=== PATIENT | female | born 1955 | race Caucasian/White ===

== ENCOUNTER → 2023-09-24 11:07 | Outpatient (REF) | payer MEDICARE, SELFPAY ==
[2023-09-24 11:44] LABS: % Basophils 1.1 % (0-2); % Eosinophils 2.5 % (0-6); % Immature Granulocytes 0.3 % (0-0.5); % Lymphocytes 6.5 % (20.5-51.1); % Monocytes 7.4 % (1.7-9.3); % Neutrophils 82.2 % (42.2-75.2); Absolute Basophils 0.1 10^3/uL (0-0.2); Absolute Eosinophils 0.2 10^3/uL (0-0.7); Absolute Lymphocytes 0.4 10^3/uL (1.2-3.4); Absolute Monocytes 0.5 10^3/uL (0.1-0.6); Absolute Neutrophils 5.3 10^3/uL (1.4-6.5); Hematocrit 43.5 % (37.0-47.0); Hemoglobin 14.4 g/dL (12.0-16.0); Mean Corp Hgb Conc. 33.1 g/dL (33.0-37.0); Mean Corpuscular Hgb 32.7 pg (27.0-31.0); Mean Corpuscular Volume 98.9 fL (81.0-99.0); Mean Platelet Volume 8.8 fL (7.4-10.4); Nucleated Red Blood Cells % 0 %; Platelet Count 240 10^3/uL (130-400); Red Cell Dist. Width 13.5 % (11.5-14.5); White Blood Cell Count 6.5 10^3/uL (4.8-10.8)
[2023-09-24 12:15] LABS: ALT (SGPT) 15 U/L (0-35); AST (SGOT) 20 U/L (14-36); Alkaline Phosphatase 101 U/L (38-126); Blood Urea Nitrogen 16 mg/dl (7-17); Calcium 11.4 mg/dl (8.4-10.2); Carbon Dioxide 27 mmol/L (22-30); Chloride 101 mmol/L (98-107); Direct Bilirubin 0.5 mg/dl (0.0-0.4); Glucose 120 mg/dl (70-99); HDL Cholesterol 59 mg/dl; Iron 68 ug/dl (37-170); LDL Cholesterol, Calculated 89 mg/dl; Magnesium 1.5 mg/dl (1.6-2.3); Potassium 4.1 mmol/L (3.5-5.1); Sodium 136 mmol/L (135-145); Total Bilirubin 0.6 mg/dl (0.2-1.3); Total Cholesterol 180 mg/dl (50-199); Total Protein 6.2 g/dl (6.3-8.2); Triglyceride 161 mg/dl (10-149); Very Low Density Lipoprotein 32 mg/dl (0-30); eGFR > 60.00
[2023-09-24 12:37] LABS: Vitamin D, 25-OH*** 38.4 ng/mL (30-80)
[2023-09-24 13:27] LABS: Folate > 20.0 ng/ml (2.76-20); Vitamin B12 588 pg/ml (239-931)
[2023-09-26 10:15] LABS: Intact PTH 149.2 pg/ml (13.6-85.8)
[2023-09-26 20:53] LABS: Zinc 59.8 ug/dL (60.0-120.0)
[2023-09-28 05:34] LABS: Vitamin B1, Whole Blood 391 nmol/L (70-180)
== END ==
LOC: REG 11:07
PROVIDERS: ATTENDING PHYSICIAN Nurse Practitioner
DX: D68.9 Coagulation defect, unspecified (principal); I20.0 Unstable angina; N18.6 End stage renal disease; N25.81 Secondary hyperparathyroidism of renal origin; E66.01 Morbid (severe) obesity due to excess calories; K59.00 Constipation, unspecified; D50.8 Other iron deficiency anemias
CPT/HCPCS: 36415; 80053; 80061; 82248; 82306; 82607; 82728; 82746; 83540; 83735; 83970; 84425; 84630; 85025

== ENCOUNTER → 2023-12-25 07:49 | Outpatient (REF) | payer MEDICARE, SELFPAY ==
[2023-12-25 08:18] LABS: Hematocrit 46.4 % (37.0-47.0); Hemoglobin 15.5 g/dL (12.0-16.0); Mean Corp Hgb Conc. 33.4 g/dL (33.0-37.0); Mean Corpuscular Hgb 32.2 pg (27.0-31.0); Mean Corpuscular Volume 96.3 fL (81.0-99.0); Mean Platelet Volume 8.2 fL (7.4-10.4); Platelet Count 225 10^3/uL (130-400); Red Blood Cell Count 4.82 10^6/uL (4.20-5.40); Red Cell Dist. Width 13.1 % (11.5-14.5); White Blood Cell Count 1.7 10^3/uL (4.8-10.8)
[2023-12-25 08:53] LABS: ALT (SGPT) 17 U/L (0-35); AST (SGOT) 18 U/L (14-36); Albumin 3.8 g/dl (3.5-5.0); Alkaline Phosphatase 86 U/L (38-126); Blood Urea Nitrogen 13 mg/dl (7-17); Calcium 10.6 mg/dl (8.4-10.2); Carbon Dioxide 30 mmol/L (22-30); Chloride 103 mmol/L (98-107); Glucose 123 mg/dl (70-99); HDL Cholesterol 54 mg/dl; LDL Cholesterol, Calculated 115 mg/dl; Potassium 4.4 mmol/L (3.5-5.1); Sodium 139 mmol/L (135-145); Total Bilirubin 0.7 mg/dl (0.2-1.3); Total Cholesterol 192 mg/dl (50-199); Total Protein 6.1 g/dl (6.3-8.2); Triglyceride 119 mg/dl (10-149); Very Low Density Lipoprotein 23 mg/dl (0-30); eGFR > 60.00
[2023-12-25 09:09] LABS: Vitamin D, 25-OH*** 30.2 ng/mL (30-80)
[2023-12-25 09:23] LABS: TSH Reflex To Free T4 1.21 uIU/ml (0.47-4.68)
[2023-12-25 09:54] LABS: Absolute Neutrophils -Man Diff 0.7 10^3/uL (1.4-6.5); Atypical Lymphocytes 20 %; Eosinophils 13 % (0-6); Lymphocytes 18 % (20-51); Monocytes 17 % (2-9); Segmented Neutrophils 29 % (42-75)
[2023-12-25 09:55] LABS: Normal RBC Morphology Yes; Platelets Checked Yes; Total Cells Counted 100
[2023-12-25 16:06] LABS: Vitamin B12 > 1000 pg/ml (239-931)
[2023-12-26 11:05] LABS: Intact PTH 174.4 pg/ml (13.6-85.8)
== END ==
LOC: REG 07:49
PROVIDERS: ATTENDING PHYSICIAN Nurse Practitioner Adult Health
DX: N18.6 End stage renal disease (principal); Z99.2 Dependence on renal dialysis; Z00.00 Encounter for general adult medical examination without abnormal findings; I10 Essential (primary) hypertension; I13.11 Hypertensive heart and chronic kidney disease without heart failure, with stage 5 chronic kidney disease, or end stage renal disease; Z79.899 Other long term (current) drug therapy; M85.89 Other specified disorders of bone density and structure, multiple sites; Z13.220 Encounter for screening for lipoid disorders; E21.3 Hyperparathyroidism, unspecified
CPT/HCPCS: 36415; 80053; 80061; 82306; 82607; 83970; 84443; 85025

== ENCOUNTER → 2024-01-22 12:23 | Outpatient (REF) | payer MEDICARE, SELFPAY ==
[2024-01-22 14:11] LABS: Calcium 10.3 mg/dl (8.4-10.2); Iron 96 ug/dl (37-170); Magnesium 1.4 mg/dl (1.6-2.3)
[2024-01-22 14:27] LABS: Vitamin D, 25-OH*** 31.1 ng/mL (30-80)
[2024-01-22 15:17] LABS: Folate > 20.0 ng/ml (2.76-20)
== END ==
LOC: REG 12:23
PROVIDERS: ATTENDING PHYSICIAN Nurse Practitioner; FAMILY PHYSICIAN Nurse Practitioner Adult Health
DX: N18.6 End stage renal disease (principal); D50.8 Other iron deficiency anemias; I12.0 Hypertensive chronic kidney disease with stage 5 chronic kidney disease or end stage renal disease
CPT/HCPCS: 36415; 82306; 82728; 82746; 83540; 83735; 83970; 84630

== ENCOUNTER → 2024-03-01 10:02 | Outpatient (REF) | payer MEDICARE, SELFPAY ==
[2024-03-01 11:06] LABS: Ionized Calcium 1.25 mMOL/L (1.15-1.33)
[2024-03-01 11:47] LABS: Intact PTH 172.8 pg/ml (13.6-85.8)
[2024-03-01 11:59] LABS: Calcium 10.4 mg/dl (8.4-10.2); Creatine Phosphokinase 34 U/L (30-135); Magnesium 1.7 mg/dl (1.6-2.3); Phosphorus 3.2 mg/dl (2.5-4.5)
[2024-03-01 12:42] LABS: TSH Reflex To Free T4 0.94 uIU/ml (0.47-4.68)
[2024-03-02 14:43] LABS: EBV-EA (D) Ab IgG 81.3 U/mL (0.0-10.9); EBV-NA IgG <3.0 U/mL (0.0-21.9); EBV-VCA IgM Antibodies <10.0 U/mL (0.0-43.9)
[2024-03-02 16:55] LABS: CMV Qnt NAAT Plasma Log IU/mL Not Detected log IU/mL; CMV Quant NAAT Plasma Interp Not Detected (Not Detected); CMV Quant by NAAT Plasma IU/mL Not Detected
[2024-03-02 22:52] LABS: BK Qnt NAAT IU/mL, Plasma Not Detected; BK Qnt NAAT IU/mL, Urine Not Detected; BK Qnt NAAT Interp, Plasma Not Detected (Not Detected); BK Qnt NAAT Interp, Urine Not Detected (Not Detected); BK Qnt NAAT log IU/mL, Plasma Not Detected log IU/mL; BK Qnt NAAT log IU/mL, Urine Not Detected log IU/mL
== END ==
LOC: REG 10:02
PROVIDERS: ATTENDING PHYSICIAN Specialist; FAMILY PHYSICIAN Nurse Practitioner Adult Health
DX: Z94.0 Kidney transplant status (principal); R53.83 Other fatigue
CPT/HCPCS: 36415; 82330; 82550; 83735; 83970; 84100; 84443; 86663; 86664; 86665; 87497; 87799

== ENCOUNTER 2024-05-05 15:52 | Emergency (ER) | payer MEDICARE, SELFPAY ==
[2024-05-05] VITALS (12 sets, daily range): BP systolic 79–154; BP diastolic 52–120; BMI 37.8
[2024-05-05 16:25] LABS: Hematocrit 39.3 % (37.0-47.0); Hemoglobin 13.5 g/dL (12.0-16.0); Mean Corp Hgb Conc. 34.4 g/dL (33.0-37.0); Mean Corpuscular Hgb 30.8 pg (27.0-31.0); Mean Corpuscular Volume 89.7 fL (81.0-99.0); Mean Platelet Volume 9.2 fL (7.4-10.4); Platelet Count 145 10^3/uL (130-400); Red Blood Cell Count 4.38 10^6/uL (4.20-5.40); White Blood Cell Count 6.9 10^3/uL (4.8-10.8)
[2024-05-05 16:32] LABS: ALT (SGPT) 21 U/L (0-35); AST (SGOT) 26 U/L (14-36); Albumin 3.2 g/dl (3.5-5.0); Alkaline Phosphatase 45 U/L (38-126); Blood Urea Nitrogen 16 mg/dl (7-17); Carbon Dioxide 24 mmol/L (22-30); Chloride 97 mmol/L (98-107); Estimated Creatinine Clearance 112 ml/min; Glucose 143 mg/dl (70-99); Potassium 4.1 mmol/L (3.5-5.1); Sodium 132 mmol/L (135-145); Total Bilirubin 1.1 mg/dl (0.2-1.3); Total Protein 5.5 g/dl (6.3-8.2); eGFR > 60.00
[2024-05-05 16:37] LABS: Troponin I < 0.012 ng/ml
[2024-05-05 16:50] LABS: % Basophils 0.6 % (0-2); % Eosinophils 2.2 % (0-6); % Immature Granulocytes 0.6 % (0-0.5); % Lymphocytes 33.8 % (20.5-51.1); % Monocytes 6.1 % (1.7-9.3); % Neutrophils 56.7 % (42.2-75.2); Absolute Eosinophils 0.2 10^3/uL (0-0.7); Absolute Lymphocytes 2.3 10^3/uL (1.2-3.4); Absolute Monocytes 0.4 10^3/uL (0.1-0.6); Absolute Neutrophils 3.9 10^3/uL (1.4-6.5); Nucleated Red Blood Cells % 0 %
--- NOTE | 2024-05-05 17:25 | ED.GENMED ---
History of Present Illness
General
Chief Complaint: Dizziness
Source: patient and records
Time Seen by Provider: 05/05/24 16:25
History of Present Illness
History of Present Illness:
68-year-old female status post right kidney transplant, iron deficiency anemia, previous alcohol abuse presenting to the emergency department for evaluation at the request of her primary care provider after patient has been feeling feverish (notes
she has not had a fever), chills, nausea, 1 episode of vomiting yesterday but none today and lightheaded/off-balance while ambulating over the last 5 or 6 days. Patient reports that on Thursday she started experiencing dysuria and urinary frequency
and contacted her primary care provider and spoke to the on-call physician who decided to initiate patient on ciprofloxacin for suspected urinary tract infection. Patient reports that she never had her urine tested prior to starting treat. She
notes that the urinary symptoms did seem to improve but still had the after mentioned symptoms. At primary care provider's office today patient was evaluated and recommended to come to the ER for further evaluation and potential treatment.
Presently patient states she 'just does not feel very well'. No other concerns at this time.
Past History
Past History
ED Past Medical History: HTN, Renal failure and Other (End-stage renal disease on Dialysis, Iron deficiency, hyperparathyroidism, ABEBE, depression)
ED Past Surgical History: Orthopedic and Tonsilectomy
Social History
Tobacco: Non-smoker
Alcohol: Former (Recovering alcoholic)
Drug: None
Personal: Single
Living: alone (sister lives next door)
Family History
Family History: Other (Mother with colon cancer and colostomy, father with kidney disease and coronary disease.)
Review of Systems
Review of Systems
All Other Systems: ROS reviewed and negative except as documented in HPI and ROS
Phy Exam
Physical Exam
Physical Exam:
GENERAL: Alert , in no apparent distress
HEAD: NCAT
EYE: clear conjunctiva
NECK: Supple
ENT: mmm.
CARDIAC: Regular rate and rhythm .
LUNGS: Clear breath sounds bilaterally, no acute respiratory distress, no wheezes/rales/rhonchi
ABDOMEN: Soft, without focal tenderness, no r/g, mild right sided flank pain but patient reports this is chronic since transplant and not any different today
NEUROLOGICAL: Alert and oriented
SKIN: Warm and dry, skin intact.
MUSCULOSKELETAL: no edema, well perfused.
PSYCH: Normal and appropriate interaction.
Scores
Heart Failure Risk
Heart Failure Risk Score: Not Applicable
Heart Score for Chest Pain Patients
STEMI patient?: Not applicable
Withdrawal Assessment of Alcohol
Withdrawal Assessment Completed?: Not applicable
Course
Orders/Labs/Results
Orders:
Orders
05/05/24 15:56
Electrocardiogram (*1) Urgent
Reason for Study: Chest Pain
EKG- Treatment ONCE
05/05/24 16:04
Complete Blood Count/With Diff Urgent
Comprehensive Metabolic Panel Urgent
Troponin I Urgent
05/05/24 17:24
Lactic Acid Q4H
Comment: CANCEL 2nd LACTIC ACID IF 1st LACTIC ACID IS LESS THAN 2
Urinalysis Reflex To Culture Urgent
Date Specimen was Collected: 05/05/24
Time Specimen was Collected: 17:12
Urine Microscopic Reflex Cult Urgent
Blood Culture Routine
ALICIA Source: Blood/Venous
Specimen Description:
Blood Culture Urgent
ALICIA Source: Blood/Venous
Specimen Description:
Urine Culture Urgent
ALICIA Source: U
Specimen Description:
Date Specimen was Collected: 05/05/24
Time Specimen was Collected: 17:12
05/05/24 19:25
0.9% Sodium Chloride 1000 ml [Nss] 1,000 ml IV BOLUS
05/05/24 19:43
Cefepime HCl [Maxipime] 2,000 mg IV NOW STA
Abnormal Lab Results
05/05/24 05/05/24
16:04 17:24
Immature Gran % 0.6 H %
(0-0.5)
Sodium 132 L mmol/L
(135-145)
Chloride 97 L mmol/L
(98-107)
Glucose 143 H mg/dl
(70-99)
Total Protein 5.5 L g/dl
(6.3-8.2)
Albumin 3.2 L g/dl
(3.5-5.0)
Urine Ketones Trace A
(Negative)
Ur Occult Blood Reflex 1+ A
(Negative)
Urine Bilirubin 1+ A
(Negative)
Urine Urobilinogen 2+ A
(Neg - 1+)
Leukocyte Esterase Rfl Trace A
(Negative)
Urine Bacteria (Reflex) Many A
(Negative)
Urine Glucose Trace A
(Negative)
05/05/24 16:04
05/05/24 16:04
Vital Signs
Initial and Last Documented VS:
Initial Vital Signs
Temp Pulse Resp BP Pulse Ox
97.8 F 94 16 100/62 99
05/05/24 15:57 05/05/24 15:57 05/05/24 15:57 05/05/24 15:57 05/05/24 15:57
Last Documented Vital Signs
Temp Pulse Resp BP Pulse Ox
97.8 F 85 25 154/73 92
05/05/24 15:57 05/05/24 20:45 05/05/24 20:45 05/05/24 20:34 05/05/24 20:45
Hole Filler consulted with Physician
Hole Filler consulted with physician?: Yes
Name of Physician Consulted: Tamiko
MDM/Problems Addressed
Differential Diagnosis Includes:
cystitis, pyelonephritis, bacteremia, transplant complication, anemia, electrolyte imbalance
MDM/Problems Addressed:
68-year-old female presenting to the emergency department for flulike illness, decreased p.o. intake, nausea, recent treatment for urinary tract infection and completed ciprofloxacin yesterday, sent by the primary care provider for further
evaluation. Patient hemodynamically stable although blood pressure was noted to be a little soft while in triage. No focal findings on exam. Will check labs, lactic acid, blood cultures, urinalysis and chest x-ray. Reassessment following.
Chronic conditions affecting care: Immunosuppressed
*Pulse Oximetry
Patient hypoxic: no
*EKG
Interpreted by ED Provider?: Yes
Heart Rate: 88
Rate: normal
Rhythm: sinus
Gage: normal axis
Ischemia: no ischemia
*Environmental Health Sanitarian Interpretation
Rate: normal
Rhythm: sinus
*Critical Care Note
Total Time (30-74mins, 75-104mins- exclusive of procedures): 30
comment:
Critical care statement: A total of 30 minutes of critical care time was provided for this patient. This includes management of unstable vital signs, evaluation of the patient at bedside, reviewing the patient's pertinent medical records, discussion
with consultants, review of old EKGs and review of pertinent medical records. This time with separate from time utilized to perform the aforementioned documented procedures
Data Reviewed
Review of Other/Old Records Reveals: Labs and Records
Patient Management
Discussion with other providers: Director Of Financial Planning
Escalation/DeEscalation of care consider admission/obs:
7:15 PM - during workup patient had a drop in her blood pressure to 80/52. An additional 1 L of IV fluids was ordered and due to her couple episodes of hypotension decision was made to consult with patient's transplant team at [facility]. I
spoke to Dr. Coppola who would like patient transferred to his service for continued evaluation and treatment. Will order Maxipime to cover for possible urinary tract infection given recent treatment with Cipro for UTI that started this Thursday.
Patient is agreeable to this plan. Arranging for transportation to [facility].
ED Attending Note
-
Portions of this chart may have been created with voice recognition software.� Occasional wrong word or��sound alike� substitutions may have occurred due to the inherent limitations of voice recognition software.
Discharge Plan
Departure
Patient Disposition: Acute Care Hospital
Date of Disposition: 05/05/24
Time of Disposition: 19:42
Discharge Problem:
Hypotension
Prescriptions:
No Action
sevelamer carbonate 800 MG tablet
2,400 mg PO MEALS
cinacalcet 30 MG tablet
30 mg PO MOTUWETHFR
acetaminophen [Tylenol Extra Strength] 500 MG tablet
500 mg PO BIDPRN PRN (Reason: mild pain)
hydroxyzine HCl 10 MG tablet
10 mg PO HS
folic acid 1 MG tablet
1 mg PO DAILY
ondansetron HCl 4 MG tablet
4 mg PO Q8HPRN PRN (Reason: nausea/vomiting)
lorazepam 0.5 MG tablet
0.25 - 0.5 mg PO DAILYPRN PRN (Reason: anxiety)
Patient Comments:
05/28/2023: last filled 02/04/23, 10 tabs for 10 days from [id number]
Lokelma 10 GM powder in packet
10 gm PO TUTHSA
bupropion HCl 300 MG tablet extended release 24 hr
300 mg PO DAILY
polyethylene glycol 3350 [Miralax] 17 gram Powder In Packet
17 g PO DAILYPRN PRN (Reason: constipation)
[place] Caps 1 mg capsule
1 cap PO DAILY
Referrals:
Gardenia Gibbons CRNP [Family Provider] -
Hospital Transfer
Other hospital: [facility]
I certify that the patient requires transfer: Yes
Discussed case with accepting physician: Dr. Riojas
Reason for transfer: availability of service
Interventions
Interventions:
*Risk Screen - Suicide Last Done: 05/05/24 15:57
*General Assessment Last Done: 05/05/24 15:57
*Neglect/Abuse Screening Last Done: 05/05/24 15:57
ED- Fall Risk Assessment Last Done: 05/05/24 15:57
*Nursing Disposition Last Done: 05/05/24 21:04
ED- Neurological Assessment Last Done: 05/05/24 16:22
ED Swallowing Screen Last Done: 05/05/24 16:22
Discharge Date and Time
Discharge Date/Time: 05/05/24 21:07
Print Language: BANGLADESHI
[2024-05-05 17:38] LABS: Urine Albumin Trace (Neg - Trace); Urine Bilirubin 1+ (Negative); Urine Character Clear (Clear); Urine Color Yellow; Urine Glucose Trace (Negative); Urine Ketone Trace (Negative); Urine Leukocyte Trace (Negative); Urine Nitrite Negative (Negative); Urine Occult Blood 1+ (Negative); Urine Urobilinogen 2+ (Neg - 1+)
[2024-05-05 17:49] LABS: Urine Bacteria Many (Negative); Urine Calcium Oxalate Crystals Present; Urine Red Blood Cell 0-2 /HPF (0-2)
[2024-05-05 17:58] LABS: Lactic Acid 1.5 mmol/L (0.7-2.0)
[2024-05-05] MEDS: NSS 1000 IV (19:31)
[2024-05-05] MEDS: MAXIPIME 2000 MG IV (19:48)
--- NOTE | 2024-05-05 20:57 | EDRN ---
KAMILLEAR to HEIDI MANN @ [facility]
== END 2024-05-05 21:07 | disposition short-term general hospital (02) ==
LOC: EMR 15:52
PROVIDERS: Physician Assistant Medical; EMERGENCY PHYSICIAN Emergency Medicine; FAMILY PHYSICIAN Nurse Practitioner Adult Health
DX: I95.9 Hypotension, unspecified (principal); R42 Dizziness and giddiness; D50.9 Iron deficiency anemia, unspecified; F10.10 Alcohol abuse, uncomplicated; I12.0 Hypertensive chronic kidney disease with stage 5 chronic kidney disease or end stage renal disease; N18.6 End stage renal disease; Z99.2 Dependence on renal dialysis; Z94.0 Kidney transplant status; E21.3 Hyperparathyroidism, unspecified; G47.33 Obstructive sleep apnea (adult) (pediatric); F32.A Depression, unspecified
CPT/HCPCS: 99291; 96374; 96361; 80053; 81003; 81015; 83605; 84484; 85025; 87040; 87086; 93005

== ENCOUNTER 2024-09-06 08:23 | Outpatient (RCR) | payer MEDICARE, SELFPAY | END 2024-09-06 23:59 | disposition home or self-care (01) | LOC: RPT 08:23 | PROVIDERS: ATTENDING PHYSICIAN Nurse Practitioner Adult Health | DX: R53.1 Weakness (principal); Z73.6 Limitation of activities due to disability | CPT/HCPCS: 97162; 97530 ==

== ENCOUNTER → 2024-11-10 11:59 | Outpatient (REF) | payer MEDICARE, SELFPAY ==
[2024-11-10 13:18] LABS: % Basophils 0.8 % (0-2); % Eosinophils 1.7 % (0-6); % Immature Granulocytes 0.3 % (0-0.5); % Lymphocytes 9.3 % (20.5-51.1); % Monocytes 11.3 % (1.7-9.3); % Neutrophils 76.6 % (42.2-75.2); Absolute Basophils 0.1 10^3/uL (0-0.2); Absolute Eosinophils 0.1 10^3/uL (0-0.7); Absolute Lymphocytes 0.6 10^3/uL (1.2-3.4); Absolute Monocytes 0.7 10^3/uL (0.1-0.6); Absolute Neutrophils 4.6 10^3/uL (1.4-6.5); Hematocrit 45.6 % (37.0-47.0); Hemoglobin 15.5 g/dL (12.0-16.0); Mean Corpuscular Hgb 34.2 pg (27.0-31.0); Mean Corpuscular Volume 100.7 fL (81.0-99.0); Nucleated Red Blood Cells % 0 %; Platelet Count 155 10^3/uL (130-400); Red Blood Cell Count 4.53 10^6/uL (4.20-5.40); White Blood Cell Count 5.9 10^3/uL (4.8-10.8)
[2024-11-10 14:14] LABS: ALT (SGPT) 17 U/L (0-35); AST (SGOT) 20 U/L (14-36); Albumin 4.3 g/dl (3.5-5.0); Alkaline Phosphatase 84 U/L (38-126); Blood Urea Nitrogen 17 mg/dl (7-17); Calcium 11.8 mg/dl (8.4-10.2); Carbon Dioxide 26 mmol/L (22-30); Chloride 104 mmol/L (98-107); Glucose 115 mg/dl (70-99); Potassium 4.2 mmol/L (3.5-5.1); Sodium 139 mmol/L (135-145); Total Bilirubin 0.8 mg/dl (0.2-1.3); Total Protein 6.4 g/dl (6.3-8.2); eGFR > 60.00
[2024-11-10 14:28] LABS: Vitamin D, 25-OH*** 41.3 ng/mL (30-80)
[2024-11-10 15:01] LABS: Vitamin B12 988 pg/ml (239-931)
== END ==
LOC: REG 11:59
PROVIDERS: ATTENDING PHYSICIAN Nurse Practitioner Adult Health
DX: I10 Essential (primary) hypertension (principal); Z94.0 Kidney transplant status; R42 Dizziness and giddiness; E53.9 Vitamin B deficiency, unspecified; Z79.899 Other long term (current) drug therapy
CPT/HCPCS: 36415; 80053; 82306; 82607; 84425; 85025

== ENCOUNTER → 2024-11-28 11:17 | Outpatient (REF) | payer MEDICARE, SELFPAY ==
[2024-11-28 12:18] LABS: Ionized Calcium 1.24 mMOL/L (1.15-1.33)
[2024-11-28 13:25] LABS: Blood Urea Nitrogen 14 mg/dl (7-17); Calcium 10.4 mg/dl (8.4-10.2); Carbon Dioxide 28 mmol/L (22-30); Chloride 103 mmol/L (98-107); Glucose 78 mg/dl (70-99); Phosphorus 3.3 mg/dl (2.5-4.5); Potassium 4.2 mmol/L (3.5-5.1); Sodium 140 mmol/L (135-145); eGFR > 60.00
[2024-11-30 12:28] LABS: Intact PTH 71.1 pg/ml (13.6-85.8)
[2024-11-30 15:06] LABS: Number Of Markers 26 markers; Source Blood
[2024-11-30 23:44] LABS: Tacrolimus (Prograft - FK506) 4.4 ng/mL
== END ==
LOC: REG 11:17
PROVIDERS: ATTENDING PHYSICIAN Specialist; FAMILY PHYSICIAN Nurse Practitioner Adult Health
DX: Z94.0 Kidney transplant status (principal); E83.52 Hypercalcemia; B25.9 Cytomegaloviral disease, unspecified
CPT/HCPCS: 36415; 80069; 80197; 82330; 83970; 87496

== ENCOUNTER → 2025-02-11 10:48 | Outpatient (REF) | payer MEDICARE, SELFPAY ==
[2025-02-11 12:04] LABS: ALT (SGPT) 15 U/L (0-35); AST (SGOT) 18 U/L (14-36); Albumin 4.3 g/dl (3.5-5.0); Alkaline Phosphatase 92 U/L (38-126); Blood Urea Nitrogen 12 mg/dl (7-17); Calcium 9.6 mg/dl (8.4-10.2); Carbon Dioxide 22 mmol/L (22-30); Chloride 107 mmol/L (98-107); Glucose 101 mg/dl (70-99); Iron 83 ug/dl (37-170); Magnesium 1.7 mg/dl (1.6-2.3); Potassium 4.2 mmol/L (3.5-5.1); Sodium 138 mmol/L (135-145); Total Protein 6.4 g/dl (6.3-8.2); eGFR > 60.00
[2025-02-11 12:21] LABS: Vitamin D, 25-OH*** 40.2 ng/mL (30-80)
[2025-02-11 12:39] LABS: Ferritin 722.0 ng/ml (11.1-264.0)
[2025-02-11 13:11] LABS: Folate > 20.0 ng/ml (2.76-20); Vitamin B12 934 pg/ml (239-931)
[2025-02-15 07:04] LABS: Vitamin B1, Whole Blood 200 nmol/L (70-180)
== END ==
LOC: REG 10:48
PROVIDERS: ATTENDING PHYSICIAN Nurse Practitioner; FAMILY PHYSICIAN Nurse Practitioner Adult Health; REFERRING PHYSICIAN Specialist
DX: F41.9 Anxiety disorder, unspecified (principal); F32.A Depression, unspecified; N18.6 End stage renal disease; I12.0 Hypertensive chronic kidney disease with stage 5 chronic kidney disease or end stage renal disease; E66.01 Morbid (severe) obesity due to excess calories; D50.8 Other iron deficiency anemias; R53.83 Other fatigue; G44.59 Other complicated headache syndrome
CPT/HCPCS: 36415; 80053; 82306; 82607; 82728; 82746; 83540; 83735; 83970; 84425; 84630

== ENCOUNTER → 2025-03-14 06:47 | Outpatient (REF) | payer MEDICARE, SELFPAY | LOC: MRI 06:47 | PROVIDERS: ATTENDING PHYSICIAN Nurse Practitioner Adult Health | DX: R42 Dizziness and giddiness (principal); R53.1 Weakness; Z91.81 History of falling; R68.89 Other general symptoms and signs; R51.9 Headache, unspecified | CPT/HCPCS: 70551 ==

== ENCOUNTER → 2025-08-02 12:27 | Outpatient (REF) | payer MEDICARE, SELFPAY ==
[2025-08-02 13:40] LABS: Hematocrit 51.3 % (37.0-47.0); Hemoglobin 16.6 g/dL (12.0-16.0); Mean Corp Hgb Conc. 32.4 g/dL (33.0-37.0); Mean Corpuscular Volume 91.6 fL (81.0-99.0); Nucleated Red Blood Cells % 0 %; Platelet Count 185 10^3/uL (130-400); Red Cell Dist. Width 13.2 % (11.5-14.5)
[2025-08-02 15:36] LABS: ALT (SGPT) 15 U/L (0-35); AST (SGOT) 22 U/L (14-36); Albumin 4.6 g/dl (3.5-5.0); Alkaline Phosphatase 78 U/L (38-126); Blood Urea Nitrogen 16 mg/dl (7-17); Calcium 9.8 mg/dl (8.4-10.2); Carbon Dioxide 29 mmol/L (22-30); Chloride 101 mmol/L (98-107); Glucose 99 mg/dl (70-99); Potassium 4.3 mmol/L (3.5-5.1); Sodium 137 mmol/L (135-145); Total Protein 7.1 g/dl (6.3-8.2); eGFR > 60.00
[2025-08-05 03:30] LABS: CMV Qnt NAAT Plasma Log IU/mL Not Quantified log IU/mL; CMV Quant NAAT Plasma Interp Detected (Not Detected); CMV Quant by NAAT Plasma IU/mL Not Quantified IU/mL
== END ==
LOC: REG 12:27
PROVIDERS: ATTENDING PHYSICIAN Specialist; FAMILY PHYSICIAN Nurse Practitioner Adult Health
DX: B25.9 Cytomegaloviral disease, unspecified (principal); Z94.0 Kidney transplant status
CPT/HCPCS: 36415; 80053; 82570; 84156; 84443; 85025; 87497